=== PATIENT | male | born 2000 | race Asian ===

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

== ENCOUNTER 2022-02-13 22:52 | Emergency (ER) | payer OTHER ==
[~2022-02-13] VITALS: Ht 177.8 cm; Wt 173.7 kg
[~2022-02-13 22:52] MED LIST: ALBU90AE13 INH
[2022-02-13 23:44] LABS: PLATELET COUNT 298 K/uL (142-355)
[2022-02-13 23:50] LABS: POTASSIUM 3.9 mmol/L (3.6-5.2)
[2022-02-13 23:55] LABS: PARTIAL THROMBOPLASTIN TIME 30.3 SECONDS (24.5-33.6)
[2022-02-14 05:10] VITALS: BP 144/72; TEMP 98.9
== END 2022-02-14 05:10 | disposition home or self-care (01) ==
LOC: ED 22:52
PROVIDERS: Family Medicine
DX: J45.909 Unspecified asthma, uncomplicated (principal); J18.9 Pneumonia, unspecified organism; F17.290 Nicotine dependence, other tobacco product, uncomplicated; Z20.822 Contact with and (suspected) exposure to COVID-19
CPT/HCPCS: 36415; 80053; 80307; 81000; 85027; 85379; 85610; 85730; 87635; 94664; 96365; 96375; 99284; J0696; J2930; Q9963; U0003

== ENCOUNTER 2023-01-20 21:45 | Emergency (ER) | payer OTHER ==
[~2023-01-20] VITALS: Ht 175.3 cm; Wt 156.5 kg
[2023-01-20 21:58] VITALS: TEMP 99.1
[2023-01-20 23:20] VITALS: BP 138/64
== END 2023-01-20 23:20 | disposition home or self-care (01) ==
LOC: ED 21:45
DX: R21 Rash and other nonspecific skin eruption (principal); F17.290 Nicotine dependence, other tobacco product, uncomplicated
CPT/HCPCS: 96372; 99283; J2930

== ENCOUNTER 2023-03-23 00:48 | Emergency (ER) | payer OTHER ==
[~2023-03-23] VITALS: Ht 175.3 cm; Wt 154.2 kg
[2023-03-23 01:59] LABS: PLATELET COUNT 221 K/uL (142-355)
[2023-03-23 02:14] LABS: POTASSIUM 3.9 mmol/L (3.6-5.2)
[2023-03-23 02:55] VITALS: BP 133/78
== END 2023-03-23 02:55 | disposition home or self-care (01) ==
LOC: ED 00:48
PROVIDERS: Family Medicine
DX: R30.0 Dysuria (principal); E66.9 Obesity, unspecified; R03.0 Elevated blood-pressure reading, without diagnosis of hypertension; I10 Essential (primary) hypertension; F17.290 Nicotine dependence, other tobacco product, uncomplicated
CPT/HCPCS: 80053; 81002; 85027; 87490; 87590; 99283